=== PATIENT | male | born 1960 | race Two or more races ===

== ENCOUNTER 2016-10-26 06:57 | Emergency (ER) | payer OTHER ==
[~2016-10-26] VITALS: Wt 64.0 kg
[~2016-10-26 06:57] MED LIST: BACTDS PO; CEPH-443 PO; ERYTOPOI BOTH EYES; IBUP400T22 PO
--- NOTE | 2016-10-26 07:29 | ERD ---
ER Documentation Chief Complaint Date/Time DATE: 10/26/16 TIME: 07:28 Chief Complaint chest wall pain from a fall 2 days ago. and right hand pain. hit stairs HPI 56-year-old male recently was started on trazodone and Zyprexa this week was starting to feel feel dizzy and he fell 3 days ago onto his chest and right hand. Patient states that he is seeing a psychiatrist and these are new medications that he has never tried before. He is being treated for anxiety and depression, he states that he was drinking to help himself go to bed and he had not been drinking at night when he fell which was 2 nights ago. He is going up the stairs in his home, just 3 stairs, he fell onto his right hand as well as the left side of the chest. He denies loss of consciousness, nausea, vomiting, chest pain or shortness of breath. He denies taking any anticoagulant medication. ROS All systems reviewed and are negative except as per history of present illness. Medications Home Meds Active Scripts Ibuprofen* (Motrin*) 400 Mg Tab, 400 MG PO Q6, #30 TAB Prov:NICHO MCLEAN PA-C 09/11/16 Erythromycin* (Erythromycin* Ophthalmic) 1 Applic Oint, 1 APPLIC BOTH EYES QID for 7 Days, EA apply directly to eyelid. may cause blurry vision due to ointment. do not drive while applying this medication. Prov:NICHO MCLEAN PA-C 09/11/16 Cephalexin* (Keflex*) 500 Mg Capsule, 500 MG PO QID for 7 Days, CAP Prov:NICHO MCLEAN PA-C 09/11/16 Sulfamethoxazole-Trimethoprim* (Bactrim* DS) 800-160 Mg Tab, 1 TAB PO BID for 7 Days, TAB Prov:NICHO MCLEAN PA-C 09/11/16 Allergies Allergies: Coded Allergies: No Known Allergy (Unverified , 10/26/16) PMhx/Soc Medical and Surgical Hx: pt denies Surgical Hx Hx Alcohol Use: Yes Hx Substance Use: No Hx Tobacco Use: Yes Smoking Status: Current every day smoker Physical Exam Vitals Vital Signs Date Time Temp Pulse Resp B/P Pulse Ox O2 Delivery O2 Flow Rate FiO2 10/26/16 07:06 98.4 92 20 175/81 99 Physical Exam General: Well-developed, well-nourished. The patient appears in no acute distress. HEENT: Head is normocephalic, atraumatic. No scleral icterus. Neck: Supple. Nontender. Lungs: Clear to auscultation. Normal air movement. Heart: Regular rate and rhythm. S1 and S2 are normal. No murmurs, gallops, or rubs. Abdomen: Soft, nontender, nondistended. Bowel sounds are normoactive. Back: T6-T7 paraspinal region is tender to palpation. Extremities: Tenderness over the thenar surface of the right hand, radian, ulnar , median nerve intact bilaterally, radial pulses 2+ bilaterally, sensation distally intact. No overlying laceration, there is a small abrasion on the thenar surface only. No joint laxity to the right thumb. Neurologic: Alert and oriented 3. No focal deficits. Skin: Normal turgor. No rash or lesions. Result Diagram: 10/26/16 0733 10/26/16 0733 Results 24 hrs Laboratory Tests Test 10/26/16 07:33 10/26/16 07:40 Anion Gap 18 Basophils # 0.010^3/ul Basophils % 0.3% Blood Morphology Comment Blood Urea Nitrogen 18mg/dl Calcium Level 9.5mg/dl Carbon Dioxide Level 25mmol/L Chloride Level 104mmol/L Creatinine 0.76mg/dl Eosinophils # 0.210^3/ul Eosinophils % 1.2% Glucose Level 115mg/dl Hematocrit 42.5% Hemoglobin 15.0g/dl Lymphocytes # 8.310^3/ul Lymphocytes % 60.3% Mean Corpuscular Hemoglobin 33.7pg Mean Corpuscular Hemoglobin Concent 35.2g/dl Mean Corpuscular Volume 95.8fl Mean Platelet Volume 7.3fl Monocytes # 0.510^3/ul Monocytes % 3.4% Neutrophils # 4.810^3/ul Neutrophils % 34.8% Nucleated Red Blood Cells # 0.010^3/ul Nucleated Red Blood Cells % 0.0/100WBC Platelet Count 15938^3/UL Potassium Level 4.5mmol/L Red Blood Count 4.4410^6/ul Red Cell Distribution Width 12.3% Sodium Level 142mmol/L Troponin I < 0.012ng/ml White Blood Count 13.810^3/ul Urine Bilirubin NEGATIVE Urine Clarity CLEAR Urine Color LT. YELLOW Urine Glucose NEGATIVE% Urine Hemoglobin 1+ Urine Ketones NEGATIVE Urine Leukocyte Esterase NEGATIVE Urine Microscopic RBC 0-2/HPF Urine Microscopic WBC NONE SEEN/HPF Urine Nitrite NEGATIVE Urine Specific [place] 1.015 Urine Total Protein NEGATIVE Urine Urobilinogen 0.2 E.U./dL Urine pH 5.5 Current Medications Medications (Trade) Dose Ordered Sig/Boaz Route PRN Reason Start Time Stop Time Status Last Admin Dose Admin Acetaminophen (Tylenol Tab) 650 mg ONCE ONCE PO 10/26/16 07:30 10/26/16 09:44 DC 10/26/16 07:35 PROCEDURE: XR Chest. CLINICAL INDICATION: Chest pain TECHNIQUE: Chest AP portable. COMPARISON: No comparison available. FINDINGS: The mediastinal structures are unremarkable. The heart is normal in size and configuration. The pulmonary vascularity is normal. There is mild bibasilar subsegmental atelectasis. No consolidation is identified. The pleural spaces are unremarkable. The axial skeleton is unremarkable. IMPRESSION: Mild bibasilar subsegmental atelectasis No active intrathoracic disease. RPTAT: HGDB .Ray Huffman MD, Date Time Electronically viewed and signed by .Ray Huffman MD, on 10/26/2016 08:56 .B/ CC: ROCÍO DESHPANDE PA-C PROCEDURE: Left hand series CLINICAL INDICATION: Left hand pain TECHNIQUE: AP, oblique, and lateral views of the left hand were obtained. COMPARISON: 09/11/2016 FINDINGS: No acute fracture or dislocations are seen. The osseous structures are well mineralized. The articular surfaces are normal. No soft tissue abnormalities are seen. IMPRESSION: Unremarkable left hand series. RPTAT: HPNM Physician Joo Date Time Electronically viewed and signed by Physician Joo on 10/26/2016 08 :51 / CC: ROCÍO DESHPANDE PA-C PROCEDURE: XR thoracic spine. CLINICAL INDICATION: Back pain TECHNIQUE: AP and lateral radiographs of the thoracic spine are available for review. COMPARISON: None. FINDINGS: There is mild lower thoracic spondylosis. The vertebral bodies are otherwise normal the mineralization, architecture and alignment. No fractures or osseous lesions are identified. The disk spaces are unremarkable. The soft tissues are unremarkable. IMPRESSION: Mild lower thoracic spondylosis. RPTAT: HGDB .Ray Huffman MD, MD Date Time Electronically viewed and signed by .Ray Huffman MD, on 10/26/2016 08:57 .B/ Procedures/MDM ED course: Due to patient's history of dizziness that led to fall, patient had blood work, x-ray and EKG. He was given Tylenol for pain. MDM: 56-year-old male recently started on trazodone and Zyprexa comes to emergency department with dizziness that led him to fall. He experienced blunt chest trauma, complains of lower to mid back pain as well as right hand pain. This patient's blood work was unremarkable, there is no anemia, electrolyte abnormalities, renal insufficiency and patient's troponin was negative. Given that he fell 2 days ago with dizziness, I feel that the patient can safely be discharged home with one troponin level. Although I doubt that there is any involvement acute coronary syndrome or pulmonary embolus. He does not complain of any chest pain or shortness of breath, I doubt pulmonary embolus. This patient was recently started on trazodone as well as Zyprexa that likely his medication issue that led him to fall. He was asked to follow-up with his psychiatrist for medication reevaluation. No evidence of any fractures on x- rays. Patient's blood pressure was elevated (>120/80) but appears stable without evidence of hypertension emergency or urgency. The patient was counseled about the risks of hypertension and urged to pursue outpatient monitoring and therapy within a week with their primary care physician. Departure Diagnosis: Primary Impression: Fall Condition: Good ROCÍO DESHPANDE PA-C Oct 26, 2016 07:29
[2016-10-26] MEDS ORDERED: ACETAMINOPHEN 325 MG TAB PO ONE (07:30)
[2016-10-26 07:53] LABS: BASOPHILS % 0.3 % (0.0-2.0); CHLORIDE 104 mmol/L (97-110); EOSINOPHILS # 0.2 10^3/ul (0.0-0.5); EOSINOPHILS % 1.2 % (0.0-7.0); HEMATOCRIT 42.5 % (42.0-52.0); LYMPHOCYTES # 8.3 10^3/ul (0.8-2.9); LYMPHOCYTES % 60.3 % (15.0-51.0); MEAN CORPUSCULAR HEMOGLOBIN 33.7 pg (29.0-33.0); MEAN CORPUSCULAR HGB CONC 35.2 g/dl (32.0-37.0); MEAN CORPUSCULAR VOLUME 95.8 fl (82.0-101.0); MEAN PLATELET VOLUME 7.3 fl (7.4-10.4); MONOCYTE # 0.5 10^3/ul (0.3-0.9); MONOCYTES % 3.4 % (0.0-11.0); NEUTROPHIL # 4.8 10^3/ul (1.6-7.5); NEUTROPHILS % 34.8 % (39.0-77.0); PLATELET COUNT 152 10^3/UL (140-440); POTASSIUM 4.5 mmol/L (3.5-5.1); RED BLOOD COUNT 4.44 10^6/ul (4.70-6.10); RED CELL DISTRIBUTION WIDTH 12.3 % (11.5-14.5); SODIUM 142 mmol/L (135-144); UNCORRECTED WBC 13.8 10^3/ul (4.8-10.8); WHITE BLOOD COUNT 13.8 10^3/ul (4.8-10.8)
[2016-10-26 07:56] LABS: ANION GAP 18 (8-16); CARBON DIOXIDE 25 mmol/L (21-31); CREATININE 0.76 mg/dl (0.61-1.24); GLUCOSE 115 mg/dl (70-220)
[2016-10-26 07:57] LABS: CALCIUM 9.5 mg/dl (8.4-10.2)
[2016-10-26 08:19] LABS: ADD UMIC YES; URINE BILIRUBIN (Dip) NEGATIVE (NEGATIVE); URINE BLOOD (Dip) 1+ (NEGATIVE); URINE COLOR LT. YELLOW (YELLOW); URINE GLUCOSE (Dip) NEGATIVE (NEGATIVE); URINE KETONES (Dip) NEGATIVE (NEGATIVE); URINE LEUKOCYTE ESTERASE (Dip) NEGATIVE (NEGATIVE); URINE NITRITE (Dip) NEGATIVE (NEGATIVE); URINE TOTAL PROTEIN (Dip) NEGATIVE (NEGATIVE); URINE UROBILINOGEN (Dip) 0.2 E.U./dL (0.1-1.0)
[2016-10-26 08:19] LABS: TROPONIN-I < 0.012 ng/ml (0.00-0.12)
--- NOTE | 2016-10-26 08:52 | RADRPT ---
PROCEDURE: Left hand series CLINICAL INDICATION: Left hand pain TECHNIQUE: AP, oblique, and lateral views of the left hand were obtained. COMPARISON: 09/11/2016 FINDINGS: No acute fracture or dislocations are seen. The osseous structures are well mineralized. The artic ular surfaces are normal. No soft tissue abnormalities are seen. IMPRESSION: Unremarkable left hand series. RPTAT: HPNM Physician Joo Date Time Electronically viewed and signed by Alfred Castillo Physician on 10/26/2016 08:51 /
--- NOTE | 2016-10-26 08:57 | RADRPT ---
PROCEDURE: XR Chest. CLINICAL INDICATION: Chest pain TECHNIQUE: Chest AP portable. COMPARISON: No comparison available. FINDINGS: The mediastinal structures are unremarkable. The heart is normal in size and configuration. The pu lmonary vascularity is normal. There is mild bibasilar subsegmental atelectasis. No consolidation is identified. The pleural spaces are unremarkable. The axial skeleton is unremarkable. IMPRESSION: Mild bibasilar subsegmental atelectasis No active intrathoracic disease. RPTAT: HGDB .Ray uHffman MD, MD Date Time Electronically viewed and signed by .Ray Huffman MD, on 10/26/2016 08:56 .B/
--- NOTE | 2016-10-26 08:58 | RADRPT ---
PROCEDURE: XR thoracic spine. CLINICAL INDICATION: Back pain TECHNIQUE: AP and lateral radiographs of the thoracic spine are available for review. COMPARISON: None. FINDINGS: There is mild lower thoracic spondylosis. The vertebral bodies are otherwise normal the mineralizat ion, architecture and alignment. No fractures or osseous lesions are identified. The disk spaces a re unremarkable. The soft tissues are unremarkable. IMPRESSION: Mild lower thoracic spondylosis. RPTAT: HGDB .Ray Huffman MD, MD Date Time Electronically viewed and signed by .Ray Huffman MD, on 10/26/2016 08:57 .B/
[2016-10-26 09:01] LABS: URINE RBCS 0-2 /HPF (0)
[2016-10-26 09:14] LABS: CONDITION 1; LH ANALYZER COMMENTS 1
[2016-10-26 09:35] LABS: BLOOD UREA NITROGEN 18 mg/dl (7-20)
== END 2016-10-26 09:44 | disposition home or self-care (01) ==
LOC: FTE 06:57
DX: S29.001A Unspecified injury of muscle and tendon of front wall of thorax, initial encounter (principal); F17.210 Nicotine dependence, cigarettes, uncomplicated; S60.511A Abrasion of right hand, initial encounter; S29.9XXA Unspecified injury of thorax, initial encounter; I10 Essential (primary) hypertension; J45.909 Unspecified asthma, uncomplicated; W10.9XXA Fall (on) (from) unspecified stairs and steps, initial encounter; Y92.009 Unspecified place in unspecified non-institutional (private) residence as the place of occurrence of the external cause
CPT/HCPCS: 71010; 72072; 73130; 80048; 81001; 81003; 84484; 85025; Z7610; 36415; 93005